=== PATIENT | male | born 1965 | race Caucasian/White ===

== ENCOUNTER → 2025-03-03 07:44 | Outpatient (REF) | payer OTHER, SELFPAY | LOC: RAD 07:44 | PROVIDERS: ATTENDING PHYSICIAN Internal Medicine | DX: Z13.6 Encounter for screening for cardiovascular disorders (principal); Z82.49 Family history of ischemic heart disease and other diseases of the circulatory system | CPT/HCPCS: 76770 ==

== ENCOUNTER 2025-03-11 06:18 | Day surgery (SDC) | payer OTHER, SELFPAY ==
[2025-03-11 07:24] LABS: Glucose - Point of Care 114 mg/dl (70-99)
== END 2025-03-11 08:27 | disposition home or self-care (01) ==
LOC: GI 06:18
PROVIDERS: ATTENDING PHYSICIAN Internal Medicine; REFERRING PHYSICIAN Internal Medicine
DX: Z12.11 Encounter for screening for malignant neoplasm of colon (principal); K57.30 Diverticulosis of large intestine without perforation or abscess without bleeding
CPT/HCPCS: G0121; 82962